=== PATIENT | male | born 1950 | race Caucasian/White ===

== ENCOUNTER 2019-08-13 08:12 | Outpatient (CLI) | payer MEDICARE ==
--- NOTE | 2019-08-13 10:31 | ULT ---
RENAL ULTRASOUND: DATE: 08/13/2019. PROVIDED CLINICAL HISTORY: Left renal mass. FINDINGS: No comparisons. The right kidney measures about 12.1 x 5.4 x 5.3 cm and demonstrates no evidence for hydronephrosis, sonographically apparent calculus, or mass. The left kidney measures about 13 x 7 x 9.2 cm and demonstrates no evidence for hydronephrosis. Ther e is a 1.2 cm echogenic mass involving the mid to lower pole of the left kidney laterally. There is an echogenic focus measuring about 1 cm involving the mid portion of the left kidney that may reflect calculus. The urinary bladder appears sonographically unremarkable. The prostate gland appears enlarged, measu ring about 5.2 x 4.8 x 5.2 cm. IMPRESSION: 1. 1.2 cm echogenic left renal mass. 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 Correlate with presumed prior imaging. 2. Possible nonobstructing left renal calculus. 3. Prostate enlargement. POS: TAY
== END 2019-08-13 08:13 | disposition home or self-care (01) ==
LOC: SCSULT 08:12
PROVIDERS: ATTEND Urology
DX: D41.02 Neoplasm of uncertain behavior of left kidney (principal); N28.89 Other specified disorders of kidney and ureter; N40.0 Benign prostatic hyperplasia without lower urinary tract symptoms
CPT/HCPCS: 76770

== ENCOUNTER 2022-06-21 12:21 | Emergency (ER) | payer MEDICARE | END 2022-06-21 15:01 | disposition home or self-care (01) | LOC: ERS 12:21 | DX: M79.81 Nontraumatic hematoma of soft tissue (principal) | CPT/HCPCS: 76936 ==

== ENCOUNTER 2022-07-20 06:04 | Day surgery (SDC) | payer MEDICARE ==
[2022-07-18 12:43] VITALS: BMI 33.4
== END 2022-07-20 07:43 | disposition home or self-care (01) ==
LOC: SDC 06:04
PROVIDERS: ATTEND Internal Medicine Cardiovascular Disease
DX: I48.19 Other persistent atrial fibrillation (principal); K21.9 Gastro-esophageal reflux disease without esophagitis; E78.5 Hyperlipidemia, unspecified; I50.22 Chronic systolic (congestive) heart failure; N40.0 Benign prostatic hyperplasia without lower urinary tract symptoms; M19.90 Unspecified osteoarthritis, unspecified site; Z53.8 Procedure and treatment not carried out for other reasons; Z87.891 Personal history of nicotine dependence; Z79.01 Long term (current) use of anticoagulants; Z79.899 Other long term (current) drug therapy; Z88.8 Allergy status to other drugs, medicaments and biological substances
CPT/HCPCS: 93005; 93010